=== PATIENT | female | born 1955 | race Hispanic/Latino ===

== ENCOUNTER → 2017-12-27 | Outpatient (CLI) | payer BC ==
[~2017-12-27] MED LIST: DIATRIZOATE MEGL/DIATRIZOA SOD 30 ML BTL PO ONE; IOPAMIDOL 370 MG/ML 200 ML INFUS..BTL INJ ONE; SODIUM CHLORIDE 0.9% 50ML 50 ML ONE; ULTRAM 50MG50 MG PO
[2017-12-27 17:45] LABS: BLOOD UREA NITROGEN 11 mg/dL (7-26); BUN/CREATININE RATIO 15 (6-25); CREATININE, SERUM 0.73 mg/dL (0.57-1.11); EST GLOMERULAR FILTRATION RATE > 60 ML/MIN (60-)
--- NOTE | 2017-12-27 18:52 | Diagnostic Imaging Report ---
PROCEDURE: CT ABDOMEN AND PELVIS WITH CONTRAST TECHNIQUE: The abdomen and pelvis were scanned utilizing a multidetector helical scanner from the diaphragm to the lesser trochanter after the IV administration of 100 cc of Isovue 370 and the oral administration of Gastroview/water. Coronal and sagittal multiplanar reformations were obtained. DLP: 777.2 mGy-cm COMPARISON: None. INDICATIONS: VENTRAL HERNIA FINDINGS: LOWER THORAX: Normal. HEPATOBILIARY: Hepatic steatosis. No focal hepatic lesions. No intrahepatic biliary ductal dilatation. Cholecystectomy. Common bile duct measures approximately 1.1 cm, likely related to post-cholecystectomy reservoir effect. SPLEEN: No splenomegaly. PANCREAS: No focal masses or ductal dilatation. ADRENALS: No adrenal nodules. KIDNEYS/URETERS: No hydronephrosis, stones, or solid mass lesions. PELVIC ORGANS/BLADDER: Unremarkable. PERITONEUM / RETROPERITONEUM: No free air or fluid. LYMPH NODES: No lymphadenopathy. VESSELS: Mild atherosclerotic calcifications. No abdominal aortic aneurysm. GI TRACT: No distention or wall thickening. Few colonic diverticula without evidence of diverticulitis. No evidence of appendicitis. BONES AND SOFT TISSUES: Ventral hernia with 12 x 8.4 x 17.7 cm (SI x AP x TV) hernia sac with 3.8 x 6.7 cm (SI x TV) neck contains multiple small bowel loops, mesentery, and the appendix. No evidence of strangulation or bowel obstruction. 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 IMPRESSION: Large ventral hernia contains multiple small bowel loops and the appendix. Dictated by: Rajeev Dominguez M.D. on 12/27/2017 at 18:54 Electronically approved by: Rajeev Dominguez M.D. on 12/27/2017 at 18:54
== END ==
LOC: CT 16:48
PROVIDERS: ATTEND Surgery
DX: K43.9 Ventral hernia without obstruction or gangrene (principal)
CPT/HCPCS: 36415; 74177; 82565; 84520; Q9967

== ENCOUNTER 2018-02-25 06:59 | Inpatient (IN) | payer BC ==
[2018-02-21 09:36] LABS: BASOPHILS % 0.5 % (0.0-1.0); EOSINOPHILS # (AUTO) 0.1 (0.0-0.4); EOSINOPHILS % 1.6 % (0.0-6.0); HEMOGLOBIN 14.8 g/dL (12.0-16.0); LYMPHOCYTES # (AUTO) 2.3 (1.0-3.2); LYMPHOCYTES % 30.4 % (18.0-39.1); MEAN CORPUSCULAR HEMOGLOBIN 27.1 pg (28-32); MEAN CORPUSCULAR HGB CONC 32.9 g/dL (31-35); MEAN CORPUSCULAR VOLUME 82.4 fL (81-99); MONOCYTES # (AUTO) 0.4 (0.2-0.8); MONOCYTES % 5.5 % (4.4-11.3); NEUTROPHILS # (AUTO) 4.7 (2.1-6.9); NEUTROPHILS % 61.7 % (38.7-80.0); PLATELET COUNT 297 x10e3/uL (140-360); RED BLOOD COUNT 5.46 x10e6/uL (3.6-5.1); RED CELL DISTRIBUTION WIDTH 13.6 % (11.7-14.4)
--- NOTE | 2018-02-21 09:45 | Diagnostic Imaging Report ---
PROCEDURE:CHEST 2 VIEWS TECHNIQUE:PA and lateral chest INDICATION:Preoperative evaluation for hernia repair COMPARISON:None. FINDINGS: Lungs are clear and symmetrically inflated. No pleural effusions. Normal heart size, mediastinal contour, and pulmonary vasculature. Cholecystectomy clips. Intact skeleton with multilevel degenerative disc disease. CONCLUSION: No acute abnormality or interval change from January 2017. Dictated by: Byron Douglas M.D. on 02/21/2018 at 9:48 Electronically approved by: Byron Douglas M.D. on 02/21/2018 at 9:48
[2018-02-21 11:06] LABS: ANION GAP 10.8 mmol/L (8-16); BLOOD UREA NITROGEN 12 mg/dL (7-26); BUN/CREATININE RATIO 19 (6-25); CALCIUM 9.5 mg/dL (8.4-10.2); CARBON DIOXIDE 28 mmol/L (22-29); CHLORIDE 104 mmol/L (98-107); CREATININE, SERUM 0.62 mg/dL (0.57-1.11); EST GLOMERULAR FILTRATION RATE > 60 ML/MIN (60-); GLUCOSE 109 mg/dL (74-118); POTASSIUM 3.8 mmol/L (3.5-5.1); SODIUM 139 mmol/L (136-145)
[~2018-02-25] VITALS: Ht 132.1 cm; Wt 272.2 kg
[~2018-02-25 06:59] MED LIST changes: -DIATRIZOATE MEGL/DIATRIZOA SOD 30 ML BTL PO ONE; -IOPAMIDOL 370 MG/ML 200 ML INFUS..BTL INJ ONE; -SODIUM CHLORIDE 0.9% 50ML 50 ML ONE
[2018-02-25] MEDS ORDERED: BUPIVACAINE 0.5%/EPI 30 ML SDV INJ ONE (07:06)
[2018-02-25] MEDS ORDERED: BACITRACIN 50,000 UNIT VIAL ONE ×3 (07:06→09:59)
[2018-02-25] MEDS ORDERED: BACITRACIN ZINC 15 GM OINT ONE (10:46)
[2018-02-25] MEDS ORDERED: HYDROMORPHONE 1MG/1ML INJ IV PRN (11:00)
[2018-02-25] MEDS ORDERED: ONDANSETRON HCL INJ 2 MG/ML VIAL IV PRN (11:00)
[2018-02-25 11:30] VITALS: BP 128/61
--- NOTE | 2018-02-25 11:37 | Operative Report ---
DATE OF PROCEDURE: February 25, 2018 PREOPERATIVE DIAGNOSIS: Ventral hernia. POSTOPERATIVE DIAGNOSIS: Ventral hernia. PROCEDURE PERFORMED: Repair of incarcerated ventral hernia with Ultrapro Hernia System. ANESTHESIA: General. ESTIMATED BLOOD LOSS: Minimal. DRAINS: None. COMPLICATIONS: None. INDICATIONS AND FINDINGS: Patient is a 61-year-old female who complains of increasing size of a ventral hernia for several years now. It is becoming more tender. There is no vomiting or rectal bleeding. She had colon resection for cancer. She does not know which side. Last colonoscopy was a year ago. She also had open cholecystectomy. INTRAOPERATIVE FINDINGS: The patient had a ventral hernia located to the right of the immediate infraumbilical region. It was a 5 to 6 cm defect that contained small bowel and omentum. The small bowel was stuck in the neck of the sac, and it was easily reduced in that location after the sac was opened. The Ultrapro Hernia System was placed after fascial approximation. DESCRIPTION OF PROCEDURE: With the patient lying on the operative table in the supine position, after the patient was given general endotracheal anesthesia, she was prepped and draped for repair of a ventral hernia. An incision was made inferior to the umbilicus transversely across the right lower quadrant encompassing the palpable hernia and bowel loops. The dissection was carried down through the skin and subcutaneous tissue. Adhesions in the subcutaneous tissue were lysed until we identified the sac. The sac was dissected free. There was another hernia extending superiorly from the main defect with the sac. All of that was dissected. Intra-abdominal cavity was then entered. There were some omental adhesions that were lysed, exposing the entire hernia neck as well as the abdominal cavity. There were a couple of small [place]-cheese type of defects superior to the hernia that contained properitoneal fat. The fat was excised, and those defects, which were about 1 cm each, were closed with #0 Ethibond suture. After we completed the dissection and prepared the hernia neck for closure, we approximated the defect edges with interrupted #0 Ethibond sutures without undue tension, carefully avoiding any intra-abdominal contents. Then we went ahead and placed over the primary fascial approximation an Ultrapro Hernia System flat mesh about 6 inches that was cut to fit the defect. Most of it was used. We secured the mesh to the fascia with a series of interrupted 2-0 Ethibond sutures around the periphery of the mesh. We then completed the placement of the mesh by tacking using the fascial stapler around the perimeter of the mesh. We at this point used a total of 30 mL of a combination of Marcaine 0.5% with saline to infiltrate the fascia for a local field block. Then, after verification that the sponge and instrument counts were correct, we closed the subcutaneous tissue with #0 chromic catgut for the soft tissues. The umbilical undersurface of the skin was tacked with #0 Vicryl. Then the subcutaneous tissues were approximated with 2-0 plain catgut, and the skin was closed a combination of 2-0 silk and meet. A 10-mm flat Kwadwo-John drain was placed to drain the subcutaneous tissues and brought out through a stab wound inferior and lateral to the incision on the right side and secured there with 2-0 silk and connected to self-suction. Sterile dressing was applied. The patient tolerated the procedure well and was taken to the recovery room in stable condition. Job#: [id number]
[2018-02-25] MEDS ORDERED: CEFAZOLIN SOD 1 GM/NS 50ML 50 ML IV SCH (12:00)
[2018-02-25 12:16] VITALS: BP 128/61
[2018-02-25] MEDS: LACTATED RINGER'S 1,000 ML INJ SCH ×2 (12:22→21:21)
[2018-02-25] MEDS: CEFAZOLIN SOD 1 GM VIAL IV SCH ×2 (12:22→17:06)
[2018-02-25] MEDS ORDERED: PROPOFOL IV EMULSION 10 MG/ML 20 ML VIAL ONE (13:04)
[2018-02-25] MEDS ORDERED: ACETAMINOPHEN 1000 MG/100 ML IV ONE (13:04)
[2018-02-25] MEDS ORDERED: ONDANSETRON HCL INJ 2 MG/ML VIAL ONE (13:04)
[2018-02-25] MEDS ORDERED: NEOSTIGMINE 5 MG/5ML SYR ONE (13:04)
[2018-02-25] MEDS ORDERED: ROCURONIUM BROMIDE 10 MG/ML 5ML VIAL ONE (13:04)
[2018-02-25] MEDS ORDERED: GLYCOPYRROLATE INJ 1MG/ 5 ML SYR ONE (13:04)
[2018-02-25] MEDS ORDERED: DEXAMETHASONE SOD PHOS INJ 4 MG/ML VIAL ONE (13:04)
[2018-02-25] MEDS ORDERED: LABETALOL HCL 5 MG/ML 20ML VIAL ONE (13:04)
[2018-02-25] MEDS ORDERED: KETOROLAC TROMETHAMINE 30 MG/ML VIAL ONE (13:04)
[2018-02-25] MEDS ORDERED: DESFLURANE 240 ML BTL INH ONE (13:04)
[2018-02-25] MEDS ORDERED: FENTANYL CITRATE/PF 100MCG/2 ML INJ ONE (13:16)
[2018-02-25] MEDS ORDERED: PROMETHAZINE 12.5MG/ NACL 0.9% 12.5 MG/50 ML BAG IV PRN (13:45)
[2018-02-25] MEDS: HYDROCODONE/APAP 7.5MG-325MG 1 EA TAB PO PRN (14:37)
[2018-02-25 16:43] VITALS: BP 110/52
[2018-02-25 16:46] VITALS: BP 110/52
[2018-02-25 20:00] VITALS: BP 119/59
[2018-02-25 20:14] VITALS: BP 119/59
[2018-02-26] VITALS: BP 93/43
[2018-02-26] MEDS: CEFAZOLIN SOD 1 GM VIAL IV SCH ×2 (00:30→05:30)
[2018-02-26 04:00] VITALS: BP 100/52
[2018-02-26] MEDS: HYDROCODONE/APAP 7.5MG-325MG 1 EA TAB PO PRN (05:41)
[2018-02-26 06:19] LABS: BASOPHILS % 0.2 % (0.0-1.0); EOSINOPHILS # (AUTO) 0.1 (0.0-0.4); EOSINOPHILS % 0.4 % (0.0-6.0); HEMATOCRIT 36.8 % (34.2-44.1); HEMOGLOBIN 11.9 g/dL (12.0-16.0); LYMPHOCYTES # (AUTO) 3.5 (1.0-3.2); LYMPHOCYTES % 30.9 % (18.0-39.1); MEAN CORPUSCULAR HEMOGLOBIN 26.6 pg (28-32); MEAN CORPUSCULAR HGB CONC 32.3 g/dL (31-35); MEAN CORPUSCULAR VOLUME 82.3 fL (81-99); MONOCYTES # (AUTO) 0.7 (0.2-0.8); MONOCYTES % 5.8 % (4.4-11.3); NEUTROPHILS # (AUTO) 7.1 (2.1-6.9); NEUTROPHILS % 62.3 % (38.7-80.0); PLATELET COUNT 248 x10e3/uL (140-360); RED BLOOD COUNT 4.47 x10e6/uL (3.6-5.1); RED CELL DISTRIBUTION WIDTH 13.9 % (11.7-14.4)
[2018-02-26] MEDS: LACTATED RINGER'S 1,000 ML INJ SCH (06:35)
[2018-02-26 06:37] LABS: BLOOD UREA NITROGEN 8 mg/dL (7-26); BUN/CREATININE RATIO 13 (6-25); CARBON DIOXIDE 28 mmol/L (22-29); CHLORIDE 107 mmol/L (98-107); CREATININE, SERUM 0.61 mg/dL (0.57-1.11); EST GLOMERULAR FILTRATION RATE > 60 ML/MIN (60-); GLUCOSE 103 mg/dL (74-118); SODIUM 144 mmol/L (136-145)
[2018-02-26 07:54] VITALS: BP 111/49
[2018-02-26 07:57] VITALS: BP 111/49
[2018-02-26 11:58] VITALS: BP 110/56
== END 2018-02-26 13:11 | disposition home or self-care (01) | DRG 355 ==
LOC: OR 06:59 → PACU V 11:16 → MED/SURG 12:00
PROVIDERS: ADMIT Surgery; ATTEND Surgery
PROC: 0WUF0JZ Supplement Abdominal Wall with Synthetic Substitute, Open Approach (ICD-10-PCS; principal; 2018-02-25 07:29)
DX: K43.9 Ventral hernia without obstruction or gangrene (principal); Z90.49 Acquired absence of other specified parts of digestive tract
CPT/HCPCS: 36415; 71046; 80048; 85025; 88302; 93005; C1781; J0690; J1100; J1170; J1885; J2405; J2550; J7120

== ENCOUNTER 2020-12-24 21:39 | Emergency (ER) | payer BC ==
[~2020-12-24] VITALS: Ht 160 cm; Wt 99.8 kg
[2020-12-24 23:34] VITALS: BP 142/60
== END 2020-12-24 23:34 | disposition home or self-care (01) ==
LOC: FSED 22:37
DX: R51.9 Headache, unspecified (principal); H54.62 Unqualified visual loss, left eye, normal vision right eye
CPT/HCPCS: 70450; 99283

== ENCOUNTER → 2021-04-15 | Outpatient (CLI) | payer BC | LOC: RAD 11:32 | PROVIDERS: ATTEND Family Medicine | DX: M25.561 Pain in right knee (principal); M25.461 Effusion, right knee ==

== ENCOUNTER → 2024-08-31 | Day surgery (SDC) | payer BC, MEDICARE ==
[2024-08-28 11:48] LABS: BASOPHILS % 0.5 % (0.0-1.0); EOSINOPHILS # (AUTO) 0.1 (0.0-0.4); EOSINOPHILS % 1.1 % (0.0-6.0); HEMATOCRIT 45.8 % (34.2-44.1); HEMOGLOBIN 14.3 g/dL (12.0-16.0); LYMPHOCYTES # (AUTO) 2.8 (1.0-3.2); LYMPHOCYTES % 33.9 % (18.0-39.1); MEAN CORPUSCULAR HEMOGLOBIN 27.1 pg (28-32); MEAN CORPUSCULAR HGB CONC 31.2 g/dL (31-35); MEAN CORPUSCULAR VOLUME 86.7 fL (81-99); MONOCYTES # (AUTO) 0.6 (0.2-0.8); MONOCYTES % 6.8 % (4.4-11.3); NEUTROPHILS # (AUTO) 4.8 (2.1-6.9); NEUTROPHILS % 57.5 % (38.7-80.0); PLATELET COUNT 277 x10e3/uL (140-360); RED BLOOD COUNT 5.28 x10e6/uL (3.6-5.1); RED CELL DISTRIBUTION WIDTH 13.6 % (11.7-14.4); WHITE BLOOD COUNT 8.26 x10e3/uL (4.8-10.8)
[2024-08-28 12:17] LABS: ANION GAP 16.3 mmol/L (8-16); CALCIUM 9.3 mg/dL (8.4-10.2); CREATININE, SERUM 0.71 mg/dL (0.57-1.11); POTASSIUM 4.3 mmol/L (3.5-5.1)
[~2024-08-31] MED LIST changes: +CYCLOPENTOLATE HCL 2% OPTH SOLN 2 ML BTL OP ONE; +FENTANYL CITRATE/PF 100MCG/2 ML INJ ONE; +GATIFLOXACIN(OPTH) 5 ML LIQD ONE; +MIDAZOLAM HCL 2 MG/2 ML VIAL ONE; +ONDANSETRON HCL INJ 2MG/ML 2ML 2 MG/ML VIAL ONE; +PHENYLEPHRINE HCL 2 ML DROPS ONE; +SERTRALINE HCL50 MG PO; +TETRACAINE HCL 0.5% OPTH SOLN 4 ML BTL ONE
[2024-08-31] MEDS: LACTATED RINGER'S 1,000 ML ONE (10:03)
[2024-08-31 12:27] VITALS: TEMP 98.2
[2024-08-31 12:40] VITALS: BP 125/50; PULSE 60; RESP 16; O2SAT 98
== END | disposition home or self-care (01) ==
LOC: OR 09:24
PROVIDERS: ATTEND Ophthalmology
DX: H25.12 Age-related nuclear cataract, left eye (principal); F32.A Depression, unspecified; F17.290 Nicotine dependence, other tobacco product, uncomplicated; Z01.810 Encounter for preprocedural cardiovascular examination; Z01.812 Encounter for preprocedural laboratory examination; Z79.899 Other long term (current) drug therapy
CPT/HCPCS: 36415; 66984; 80048; 85025; 93005; J2250; J2405; J3010; J7121; V2632